=== PATIENT | female | born 1945 ===

== ENCOUNTER 2019-07-02 10:32 | Outpatient (CLI) | payer OTHER ==
[~2019-07-02 10:32] MED LIST: CIPRO750 MG PO; COZAAR100 MG; PREDNISONE5 MG/DOSE- PO; TRAMADOL HCL50 MG PO
== END 2019-07-02 10:36 | disposition home or self-care (01) ==
LOC: SONOGRAMA 10:32 → MAMO-SONO 11:15
DX: R10.10 Upper abdominal pain, unspecified (principal); N60.11 Diffuse cystic mastopathy of right breast; N60.12 Diffuse cystic mastopathy of left breast

== ENCOUNTER 2021-03-02 12:45 | Outpatient (CLI) | payer OTHER | END 2021-03-02 12:46 | disposition home or self-care (01) | LOC: NUCLEAR 12:45 | PROVIDERS: ATTEND Family Medicine | DX: M81.0 Age-related osteoporosis without current pathological fracture (principal) ==

== ENCOUNTER 2022-12-20 08:36 | Outpatient (CLI) | payer OTHER | END 2022-12-20 08:42 | disposition home or self-care (01) | LOC: RAD 08:36 | PROVIDERS: ATTEND Family Medicine | DX: M25.572 Pain in left ankle and joints of left foot (principal) ==

== ENCOUNTER 2023-06-26 12:40 | Outpatient (CLI) | payer OTHER | END 2023-06-26 12:48 | disposition home or self-care (01) | LOC: NUCLEAR 12:40 | PROVIDERS: ATTEND Family Medicine | DX: M81.0 Age-related osteoporosis without current pathological fracture (principal) ==